=== PATIENT | male | born 2000 | race Caucasian/White ===

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

== ENCOUNTER 2022-01-30 22:42 | Emergency (ER) | payer OTHER ==
[2022-01-31] MEDS ORDERED: CEPHALEXIN500 M1 PO (00:12)
== END 2022-01-31 01:16 | disposition home or self-care (01) ==
LOC: ED 22:42
DX: S61.210A Laceration without foreign body of right index finger without damage to nail, initial encounter (principal); Z90.89 Acquired absence of other organs; W20.8XXA Other cause of strike by thrown, projected or falling object, initial encounter; Y93.89 Activity, other specified; Y92.89 Other specified places as the place of occurrence of the external cause; Y99.8 Other external cause status

== ENCOUNTER 2024-12-28 21:28 | Emergency (ER) | payer SELFPAY ==
[~2024-12-28] VITALS: Ht 185.4 cm; Wt 86.2 kg
[~2024-12-28 21:28] MED LIST changes: +CEPHALEXIN500 M1 PO
== END 2024-12-28 22:36 | disposition home or self-care (01) ==
LOC: ED 21:28
DX: T40.711A Poisoning by cannabis, accidental (unintentional), initial encounter (principal); F41.9 Anxiety disorder, unspecified; R43.2 Parageusia; R20.2 Paresthesia of skin; Z79.899 Other long term (current) drug therapy; Y92.89 Other specified places as the place of occurrence of the external cause